=== PATIENT | female | born 1945 | race Caucasian/White ===

== ENCOUNTER 2018-07-01 08:42 | Emergency (ER) | payer MEDICARE, OTHER ==
[~2018-07-01] VITALS: Ht 165.1 cm; Wt 75.0 kg
--- NOTE | 2018-07-01 09:10 | NUR ---
PT. WAS BROUGHT STRAIGHT BACK FROM TRIAGE WITH C/O EARLIER HEART PALPITATIONS. PT. WAS FOUND TO BE IN SVT. PT. DENIES CP OR SOB. PT. WAS PLACED ON THE CP MONITOR AND IV ACCESS WAS ESTABLISHED. PT.'S LUNGS ARE CTA. MM ARE PINK AND MOIST WITH PULSES +2 THROUGHOUT. PT.'S CAP REFILL IS BRISK, LESS THAN 3 SECONDS. PT. REMAINS PINK, WARM AND DRY. LUNGS ARE CTA THROUGHOUT. PT. WAS PLACED ON THE PACER PADS WITH DR. NARVAEZ AT THE BEDSIDE. RN SET UP TO GIVE PT. ADENOSINE.
[2018-07-01] MEDS ORDERED: ADENOSINE 6 MG/2 ML ONE (09:13)
[2018-07-01] MEDS ORDERED: SODIUM CHLORIDE FLUSH 10ML SYR IVF ONE (09:30)
[2018-07-01] MEDS ORDERED: ADENOSINE 6 MG/2 ML IVPush ONE (09:30)
[2018-07-01] MEDS ORDERED: ASPIRIN 81 MG TABLET CHEW PO ONE (09:30)
--- NOTE | 2018-07-01 09:30 | NUR ---
PT. WAS GIVEN ADENOSINE ORDERED. PT. CONVERTED WITH 6 MG IV ADENOSINE. REPEAT EKG WAS DONE. PT. IS RESTING WITH THE HOB ELEVATED GREATER THAN 30 DEGREES. SIDERAILS REMAIN UP X 2 WITH THE CALL LIGHT IN PLACE.
[2018-07-01] MEDS ORDERED: ASPIRIN 81 MG TABLET CHEW ONE (09:32)
[2018-07-01 09:58] LABS: BASOPHILS # (AUTO) 0.02 x10^3/uL (0-0.1); BASOPHILS % (AUTO) 0 % (0-1); EOSINOPHILS # (AUTO) 0.23 x10^3/uL (0-0.4); EOSINOPHILS % (AUTO) 5 % (1-7); LYMPHOCYTES # (AUTO) 1.14 x10^3/uL (1-3.4); LYMPHOCYTES % (AUTO) 25 % (22-44); MD NO; MEAN CORPUSCULAR HEMOGLOBIN 30.2 pg (27.0-34.8); MEAN CORPUSCULAR HGB CONC 33.1 g/dL (32.4-35.8); MEAN CORPUSCULAR VOLUME 91.4 fL (80-100); MEAN PLATELET VOLUME 7.2 fL (7.4-10.4); MONOCYTES # (AUTO) 0.22 x10^3/uL (0.2-0.8); MONOCYTES % (AUTO) 5 % (2-9); NEUTROPHILS # (AUTO) 2.98 x10^3/uL (1.8-6.8); NEUTROPHILS % (AUTO) 65 % (42-75); PLATELET COUNT 204 x10^3/uL (130-400); RED BLOOD COUNT 4.67 x10^6/uL (3.82-5.3); RED CELL DISTRIBUTION WIDTH 12.8 % (9.6-15.2)
[2018-07-01 10:09] LABS: ALANINE AMINOTRANSFERASE 30 U/L (12-78); ALBUMIN 3.4 g/dL (3.4-5.0); ANION GAP 5 mmol/L (5-15); CALCIUM 9.8 mg/dL (8.5-10.1); CHLORIDE 114 mmol/L (98-107); CREATININE 1.21 mg/dL (0.55-1.02)
[2018-07-01 10:14] LABS: ALKALINE PHOSPHATASE 108 U/L (45-117); BILIRUBIN,TOTAL 0.5 mg/dL (0.2-1.0); TOTAL PROTEIN 6.6 g/dL (6.4-8.2); TROPONIN I 0.046 ng/mL (0.000-0.045)
--- NOTE | 2018-07-01 11:14 | NUR ---
PT. WAS GIVEN DISCHARGE INSTRUCTIONS WITH UNDERSTANDING VERBALIZED ALONG WITH WILLINGNESS TO COMPLY. PT.'S IV WAS DCD',CATH TIP INTACT. PRESSURE HELD WITH HEMOSTASIS ACHIEVED. PT. WAS AMBULATORY TO THE DISCHARGE DESK. VSS.
[2018-07-01 11:19] VITALS: BP 107/58
== END 2018-07-01 11:22 | disposition home or self-care (01) ==
LOC: ED 10:08
DX: I47.1 Supraventricular tachycardia (principal); Z90.89 Acquired absence of other organs
CPT/HCPCS: 36415; 71045; 80053; 83735; 84484; 85025; 93005; 96374; 99284; J0153

== ENCOUNTER 2019-05-25 09:10 | Emergency (ER) | payer MEDICARE ==
[~2019-05-25] VITALS: Ht 165.1 cm; Wt 71.7 kg
[~2019-05-25 09:10] MED LIST: L.AC1CAP6 PO
[2019-05-25] MEDS ORDERED: ADENOSINE 6 MG/2 ML ONE (09:35)
[2019-05-25 09:48] LABS: BASOPHILS # (AUTO) 0.05 x10^3/uL (0-0.1); BASOPHILS % (AUTO) 1 % (0-1); EOSINOPHILS # (AUTO) 0.37 x10^3/uL (0-0.4); EOSINOPHILS % (AUTO) 4 % (1-7); LYMPHOCYTES # (AUTO) 1.89 x10^3/uL (1-3.4); LYMPHOCYTES % (AUTO) 22 % (22-44); MD NO; MEAN CORPUSCULAR HEMOGLOBIN 31.3 pg (27.0-34.8); MEAN CORPUSCULAR HGB CONC 33.3 g/dL (32.4-35.8); MEAN CORPUSCULAR VOLUME 93.8 fL (80-100); MEAN PLATELET VOLUME 7.2 fL (7.4-10.4); MONOCYTES # (AUTO) 0.46 x10^3/uL (0.2-0.8); MONOCYTES % (AUTO) 5 % (2-9); NEUTROPHILS # (AUTO) 5.95 x10^3/uL (1.8-6.8); NEUTROPHILS % (AUTO) 68 % (42-75); PLATELET COUNT 282 x10^3/uL (130-400); RED BLOOD COUNT 5.09 x10^6/uL (3.82-5.3); RED CELL DISTRIBUTION WIDTH 12.8 % (9.6-15.2)
[2019-05-25] MEDS ORDERED: ASPIRIN 81 MG TABLET CHEW ONE (09:48)
--- NOTE | 2019-05-25 09:53 | NUR ---
PT HAD SUDDEN PALPATIONS WHILE IN CAR WITH DAUGHTER. PT STATED SHE HAD A HX OF THIS BUT NEVER FOLLOWED UP WITH A CANAL BOAT CAPTAIN. PT HAD C/O PALPATATIONS WITH SOB AND WEAKNESS.
--- NOTE | 2019-05-25 09:55 | NUR ---
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
--- NOTE | 2019-05-25 09:56 | NUR ---
PT GIVEN 6MG ADENOSINE RAPID PUSH WITH PT HR CHANGING FROM 184 TO 88 WITHIN 30 SECONDS FROM PUSH. PT STATED "I FEEL SO MUCH BETTER NOW"
[2019-05-25] MEDS ORDERED: SODIUM CHLORIDE 0.9% 1,000ML IVBOLUS ONE (10:00)
[2019-05-25] MEDS ORDERED: ASPIRIN 81 MG TABLET CHEW PO ONE (10:00)
[2019-05-25] MEDS ORDERED: ADENOSINE 6 MG/2 ML IVPush ONE (10:00)
[2019-05-25] MEDS ORDERED: SODIUM CHLORIDE FLUSH 10ML SYR IVF ONE (10:00)
[2019-05-25 10:18] LABS: ALANINE AMINOTRANSFERASE 42 U/L (12-78); ALBUMIN 4.1 g/dL (3.4-5.0); ANION GAP 8 mmol/L (5-15); CALCIUM 10.2 mg/dL (8.5-10.1); CHLORIDE 107 mmol/L (98-107); CREATININE 1.31 mg/dL (0.55-1.02)
[2019-05-25 10:33] LABS: ALKALINE PHOSPHATASE 134 U/L (45-117); TOTAL PROTEIN 8.4 g/dL (6.4-8.2); TROPONIN I < 0.015 ng/mL (0.000-0.045)
--- NOTE | 2019-05-25 10:40 | NUR ---
pt resting in bed with pt daughter at pt side. pt has no complaints or wants at this time.
[2019-05-25 11:08] VITALS: BP 104/74
== END 2019-05-25 11:12 | disposition home or self-care (01) ==
LOC: ED 09:45
DX: I47.1 Supraventricular tachycardia (principal)
CPT/HCPCS: 36415; 71045; 80053; 83735; 83880; 84443; 84484; 85025; 93005; 99291; J0153; J7030; 80307; 92960